=== PATIENT | male | born 1945 | race Caucasian/White ===

== ENCOUNTER → 2019-03-21 | Outpatient (CLI) | payer MEDICARE ==
--- NOTE | 2019-03-23 10:36 | CT ---
EXAM DESCRIPTION: Abdomen/Pelvis w/wo Contrast: Computed Tomography. CLINICAL HISTORY: HEMATURIA COMPARISON: None. TECHNIQUE: Spiral-axial scans at 5 x 5 mm intervals through the abdomen and pelvis before and after 75 mL Optiray 320 nonionic IV contrast. No oral contrast. Coronal and sagittal 2.0 mm reconstructions. 5 mm Delayed helical-axial scans, liver through the pubic symphysis. No adverse reactions. Total Exam DLP 3397.4 mGy - cm. This exam was performed according to our departmental CT dose-optimization program which includes automated exposure control, adjustment of the mA and/or kV according to patient size and/or use of iterative reconstruction technique; to reduce radiation dose to as low as reasonably achievable (ALARA). FINDINGS: Kidneys and Ureters: 1.4 cm stone in the upper mid left renal pelvis with mild to moderate hydronephrosis. Increased fatty stranding around the pelvis. Minimal dilation of the proximal ureter but the remainder of the ureter and the right ureter are unremarkable. No contrast in the ureters on delayed images. Bilateral cortical atrophy with small bilateral cortical cysts less than 5 mm in diameter. Minimal pararenal stranding. Mesentery: No other focal stranding or fascial thickening. No free air or free fluid. Pelvic Organs: Small urinary bladder with calcifications in the prostate gland abutting the urinary bladder and seminal vesicles. Prostate gland measures up to 4.2 x 3.8 cm in the transverse plane. No fluid in the anterior peritoneal reflection. Lung bases and pleura: Bibasilar minimal mosaic density with no definite infiltrates or pleural effusion. Coronary artery calcifications. Liver, Stomach, Spleen, Adrenal Glands: Possible small sliding hiatal hernia. No esophageal distention. Other solid organs are negative. Pancreas, Gallbladder, Ducts: Surgical clips gallbladder fossa with no fluid. Otherwise negative. Aorta: Moderate atherosclerotic calcification. Small Bowel: Minimal distention of the jejunum more than the ileum but no zone of transition and no significant air-fluid levels. Terminal Ileum/Cecum: Normal caliber. Normal caliber of the appendix. No inflammatory fatty changes. Colon: Minimal to moderate redundancy of the sigmoid colon. Diffuse minimal gas more than fecal matter. Spine and Bony Pelvis: Advanced spondylosis with vertebral body loss of height and disc space loss included thoracic spine. Also moderate spondylosis lower 3 lumbar disc levels with foraminal and canal narrowing. Scoliosis. Bilateral hypertrophic acetabular changes with disc space narrowing in the hip joints. Abdominal Wall/Back Soft Tissues: Left fatty inguinal hernia partially visualized not containing bowel. Trace right fatty inguinal hernia not containing bowel. Bilateral inguinal lymph nodes. IMPRESSION: 1. 1.4 cm stone in the mid and inferior left renal pelvis with mild to moderate left hydronephrosis and dilation of the left renal pelvis and proximal left ureter. Minimal fatty stranding surrounding the pelvis. No IV contrast in either ureter on the delayed images but normal caliber. No other radiodense stones. Bilateral renal cortical thinning. No hydronephrosis or stones in the right kidney. 2. Minimal distention of the jejunum but no zone of transition with the remainder of the small bowel and no significant air-fluid levels. Possible small sliding gastric hiatal hernia. Prostate gland upper normal size and abutting the base of the urinary bladder. Left fatty inguinal hernia not containing bowel. Multiple levels of thoracic and lumbar spondylosis. Electronically signed by: Rober Jessica MD 03/23/2019 10:34 AM CDT
== END ==
LOC: YCFC.O 11:35
PROVIDERS: ATTEND Family Medicine
DX: N13.2 Hydronephrosis with renal and ureteral calculous obstruction (principal); K40.90 Unilateral inguinal hernia, without obstruction or gangrene, not specified as recurrent; M47.894 Other spondylosis, thoracic region; M47.896 Other spondylosis, lumbar region

== ENCOUNTER → 2019-04-09 | Outpatient (CLI) | payer MEDICARE ==
--- NOTE | 2019-04-09 16:31 | RAD ---
EXAM DESCRIPTION: KUB CLINICAL HISTORY: 73 years Male, Left renal stone COMPARISON: March 21, 2019 Findings: Left ureteral stent. There is a calcification overlying the left renal pelvis measuring approximately 8 mm. There is no suspicious calcification along the expected course of the ureter. No radiographically apparent calcification overlying the right kidney. Nonobstructive bowel gas pattern. No acute osseous abnormality. IMPRESSION: 8 mm calcification overlying the left renal shadow. Electronically signed by: Bautista Gold MD 04/09/2019 4:30 PM CDT
== END ==
LOC: RAD 13:13
PROVIDERS: ATTEND Urology
DX: N20.0 Calculus of kidney (principal)

== ENCOUNTER → 2019-07-09 | Outpatient (CLI) | payer MEDICARE ==
--- NOTE | 2019-07-09 15:41 | RAD ---
EXAM DESCRIPTION: KUB CLINICAL HISTORY: 74 years Male, KIDNEY STONES COMPARISON: 04/09/2019 Findings: One radiograph Removal of the left ureteral stent. No suspicious calcification identified overlying the renal shadow. Nonobstructive bowel gas pattern. Moderate stool volume. No acute osseous abnormality. Soft tissues are otherwise unremarkable. IMPRESSION: No suspicious calcification identified radiographically. Electronically signed by: Bautista Gold MD 07/09/2019 3:40 PM [facility]
== END ==
LOC: RAD 14:08
PROVIDERS: ATTEND Urology
DX: N20.0 Calculus of kidney (principal)

== ENCOUNTER → 2020-01-01 | Outpatient (CLI) | payer MEDICARE ==
--- NOTE | 2020-01-01 13:06 | RAD ---
Study: Frontal and Lateral Radiographs of the Chest. Indication: DYSPNEA ON EXERTION Comparison: None. Impression: Mild cardiomegaly without failure. Lungs clear. Degenerative changes of the spine noted. Electronically signed by: Yandel Hubbard MD 01/01/2020 1:05 PM CDT
== END ==
LOC: LAB.O 10:16
PROVIDERS: ATTEND Family Medicine
DX: I51.7 Cardiomegaly (principal); R06.09 Other forms of dyspnea; E11.9 Type 2 diabetes mellitus without complications; I10 Essential (primary) hypertension; E78.5 Hyperlipidemia, unspecified; E55.9 Vitamin D deficiency, unspecified; M47.9 Spondylosis, unspecified

== ENCOUNTER → 2020-01-03 | Outpatient (CLI) | payer MEDICARE | LOC: ECHO 08:41 | PROVIDERS: ATTEND Family Medicine | DX: I34.0 Nonrheumatic mitral (valve) insufficiency (principal); I36.1 Nonrheumatic tricuspid (valve) insufficiency; I51.7 Cardiomegaly; R06.09 Other forms of dyspnea ==

== ENCOUNTER → 2020-01-17 | Outpatient (CLI) | payer MEDICARE | LOC: NM 09:00 | PROVIDERS: ATTEND Family Medicine | DX: R06.09 Other forms of dyspnea (principal) ==

== ENCOUNTER → 2020-04-01 | Outpatient (CLI) | payer MEDICARE ==
--- NOTE | 2020-04-02 13:10 | CT ---
Procedure: CT LUNG SCREENING Exam Date: April 01, 2020. Ordering Provider: Geovanny Howard Clinical Indication: PERSONAL HISTORY OF TOBACCO DEPENDENCE . Current cigarette smoker. 50 pack-years. This patient meets eligibility criteria for low-dose CT lung cancer screening. Comparison: Baseline lung CT screening study. 2 view chest December 31. Technique: Using a multislice scanner, sequential helical axial imaging was obtained in the thorax, 2.5 mm thickness, 2.5 mm separation, from the level of the thoracic inlet through the lung bases without IV contrast. A low dose protocol was utilized for BMI greater than 30: BMI: 30.4. CTDI: 2.92 mGy. 120. kVp. 75 mA. DLP 94 mGy-cm. 2D sagittal and coronal reconstructed images, 6.0 mm thickness, were obtained. This exam was performed according to our departmental dose optimization program which includes use of automated exposure control, adjustment of the mA and/or kV according to patient size and/or use of iterative reconstruction technique. Nodule measurements under 10 mm are given as mean value of 3 axes diameters. FINDINGS: Lungs and large airways: Small bilateral parenchymal blebs in a centrilobular distribution and predominantly upper lung carter. 4.4 mm groundglass nodule in the upper lingula on axial series 2, image 52 parenchymal pleural scarring in the right middle lobe on the base of the right upper lobe. No abnormal nodule and no mass. No focal infiltrate. Pleura and space: Bilateral intermittent thickening with no acute process. Mediastinum and stephenie: evaluation limited by low dose technique and lack of IV contrast. Small nodes but no dominant soft tissue mass. Heart and great vessels: Several coronary artery calcifications. Calcifications also of the ascending aortic arch and descending thoracic aorta. Also brachiocephalic vessels. Chest wall, lower neck, axillae: Evaluation also limited by same factors as described above. Question of a nodular density right retroareolar breast on axial series 2, image 60 Upper abdomen: Evaluation limited by low-dose technique. No free air or free fluid. Osseous structures: Evaluation limited by low dose MIP technique. Diffuse anterior bridging hyperostosis on the mid and lower thoracic spine. Bilateral shoulder clavicle sternal arthrosis. IMPRESSION: 1. Minimal emphysematous changes in the upper lung carter bilaterally. Groundglass nodule in the lingula not large enough to be clinically significant.. [facility] Best Practice Recommendations: please see below for Lung RADS category and FOLLOW-UP.* *Lung RADS category CATEGORY 2- Nodules with a very low likelihood (less than 1%) of becoming a clinically active cancer due to size or lack of growth. Nodules: Perifissural nodule(s) < 10 mm. (526mm3). Solid or part solid nodule(s) less than 6mm (113.1 mm3), new solid nodule less than 4mm (33.5 mm3). Ground glass nodule(s) less than 30mm (85313.2 mm3) or unchanged or slow growing ground glass nodule 30mm or greater. Cat 3 or 4 nodule unchanged for 3 or more months. FOLLOW-UP: Continue annual screening with a Low Dose Chest CT in 12 months for re-evaluation. Electronically signed by: Rober Jessica MD 04/02/2020 1:08 PM CDT
== END ==
LOC: LAB.O 09:45
PROVIDERS: ATTEND Family Medicine
DX: Z12.2 Encounter for screening for malignant neoplasm of respiratory organs (principal); J43.9 Emphysema, unspecified; R91.1 Solitary pulmonary nodule; Z87.891 Personal history of nicotine dependence; E11.9 Type 2 diabetes mellitus without complications; I10 Essential (primary) hypertension; E55.9 Vitamin D deficiency, unspecified
CPT/HCPCS: 36415; 80048; 82306; 83036; 85025; G0297

== ENCOUNTER → 2020-07-02 | Outpatient (CLI) | payer MEDICARE | LOC: YCFC.O 09:22 | PROVIDERS: ATTEND Family Medicine | DX: E11.9 Type 2 diabetes mellitus without complications (principal); E55.9 Vitamin D deficiency, unspecified; Z12.5 Encounter for screening for malignant neoplasm of prostate; I10 Essential (primary) hypertension; E78.5 Hyperlipidemia, unspecified | CPT/HCPCS: 36415; 80053; 80061; 81001; 82306; 83036; 84443; 85025; 87086; G0103 ==